=== PATIENT | female | born 1955 | race Caucasian/White ===

== ENCOUNTER 2018-11-16 02:05 | Emergency (ER) | payer OTHER ==
[2018-11-16 03:18] VITALS: BMI 35.0
--- NOTE | 2018-11-16 04:51 | PDOC ---
History of Present Illness - General Chief Complaint: Blood Pressure Problem Stated Complaint: Blood Pressure Problem Time Seen by Provider: 11/16/18 03:36 - History of Present Illness Initial Comments: 11/16/18 05:02 63 yo F with h/o HTN who p/w SOB. Patient reports waking up this morning gasping for air, coughing at approximately 2:00 AM. Endorses lightheadedness for minutes now resolved. Denies h/o similar presentation. Patient noted her BP to be 200/110 at home this AM. On HTCZ, Losartan daily. No home O2 or duoneb requirements. Patient denies BERUMEN, vision change, palpitations,wheezing, leg swelling/pain, N/V , F,C, CP, urinary complaints, hematuria, BPR, abdominal pain, diarrhea, constipation, weakness, sensory changes. PMHx: as noted above. Denies h/o ACS/OR, stent placement, CABG, PE/DVT. ROS: as noted Allergies: NKDA Past History - Past Medical History Allergies/Adverse Reactions: Allergies Allergy/AdvReac Type Severity Reaction Status Date / Time No Known Allergies Allergy Verified 11/16/18 03:17 Home Medications: Ambulatory Orders Losartan Potassium 25 mg PO DAILY 11/16/18 HTN: Yes Psychiatric Problems: Yes (anxiety) - Suicide/Smoking/Psychosocial Hx Smoking Status: No Smoking History: Never smoked Have you smoked in the past 12 months: No Number of Cigarettes Smoked Daily: 0 Information on smoking cessation initiated: No Hx Alcohol Use: No Drug/Substance Use Hx: No Substance Use Type: None *Physical Exam - Vital Signs Last Vital Signs Temp Pulse Resp BP Pulse Ox 97.7 F 79 18 173/84 H 97 11/16/18 02:05 11/16/18 02:05 11/16/18 02:05 11/16/18 02:05 11/16/18 02:05 Moderate Sedation - Procedure Monitoring Vital Signs: Procedure Monitoring Vital Signs Temperature 97.7 F 11/16/18 02:05 Pulse Rate 79 11/16/18 02:05 Respiratory Rate 18 11/16/18 02:05 Blood Pressure 173/84 H 11/16/18 02:05 O2 Sat by Pulse Oximetry (%) 97 11/16/18 02:05 ED Treatment Course - LABORATORY CBC & Chemistry Diagram: 11/16/18 05:50 11/16/18 05:50 Medical Decision Making - Medical Decision Making 11/16/18 05:07 63 yo F with h/o HTN who p/w SOB. Patient reports waking up this morning gasping for air, coughing at approximately 2:00 AM. Patient noted her BP to be 200/110 at home this AM. BP 173/84, vitals otherwise wnl, AF, A&OX3. Denies palpitations,wheezing, leg swelling/pain, N/V, F,C, CP, urinary complaints, hematuria, BPR, abdominal pain, diarrhea, constipation, weakness, sensory changes. Possible aspiration. ACS/OR r/o. Will assess for cardiac dysarrythmias, PNA, hypoglycemia, electrolyte abnml, metabolic and toxic derangements, acid-base disturbances, infection. ED Course: 11/16/18 06:07 EKG: NSR with low voltage QRS. Absent MARKIE, STD. Nml interval duration and axis. Nml R wave progression. 11/16/18 06:54 CBC, CMP: Unremarkable Trop: Neg BNP: Unremarkable 11/16/18 07:04 Pt. pending CXR. Endorsed to day team.Patient stable, and asymptomatic. *DC/Admit/Observation/Transfer Diagnosis at time of Disposition: SOB (shortness of breath) - Discharge Dispostion Condition at time of disposition: Fair - Referrals Referrals: Mike Floyd MD [Primary Care Provider] - - Patient Instructions Printed Discharge Instructions: DI for High Blood Pressure Additional Instructions: Please return to the emergency department with any new or worsening symptoms or concerns. Please follow up with your primary care physician within 72 hours. - Post Discharge Activity
--- NOTE | 2018-11-16 06:24 | PDOC ---
Attending Attestation - Resident Resident Name: Abhishek Morales - ED Attending Attestation I have performed the following: I have examined & evaluated the patient, The case was reviewed & discussed with the resident, I agree w/resident's findings & plan, Exceptions are as noted - HPI HPI: 11/16/18 06:00 63yo F hx HTN presents the ED with episode of gasping for air and SOB in the middle of the night. Pt reports she was sleeping when the symptoms woke her up, she jumped out of bed at the time and began to pace in her home States she checked her blood pressure and found it to be elevated to 208/115 prompting her to come to the ED PT reports symptoms resolved on the way here DEnies hx similar sxs Reports SOB with exertion when climbing stairs or walking 2-3 blocks over the last few months Denies CP. Sleeps on 3 thin pillows. Has been evaluated by a senior analyst programmer years ago, no hx cardiac disease No recent fevers, chills. Pt only takes losartan/HCTZ daily for HTN PMD is Dr. Floyd - Physicial Exam PE: 11/16/18 06:24 GENERAL: Awake, alert, and fully oriented, in no acute distress EYES: PERRLA, EOMI, sclera anicteric, conjunctiva clear ENT: Nares patent, oropharynx clear without exudates. Moist mucosa NECK: Normal ROM, supple, no lymphadenopathy, JVD, or masses LUNGS: Breath sounds equal, clear to auscultation bilaterally. No wheezes, and no crackles HEART: Regular rate and rhythm, normal S1 and S2, no murmurs, rubs or gallops ABDOMEN: Soft, nontender, normoactive bowel sounds. No guarding, no rebound. No masses EXTREMITIES: Normal range of motion, trace symmetric b/l edema to knees. No cords, erythema, or tenderness NEUROLOGICAL: Normal speech, cranial nerves intact, equal strength and sensation b/l SKIN: Warm, Dry, normal turgor, no rashes or lesions noted. - Medical Decision Making 11/16/18 06:26 63yo F hx HTN presents to the ED with sudden onset SOB in middle of the night. Vitals here with elevated BP Exam unremarkable DDx includes but not limited to PND in setting of undiagnosed CHF vs ACS . Pt with some ORTIZ over last few months EKG non ischemic. Plan to check labs including trop, BNP, and discuss with Dr. Floyd. 11/16/18 07:00 Labs thus far wnl, rpt trop pending Case signed out to oncoming attending for fruther mgmt/dispo Heart Score/ECG Review #1 11/16/18 06:25 Twelve-lead EKG was performed and reviewed by me. Normal sinus rhythm, rate 65. Normal axis. No ST elevations or T-wave inversions.
[2018-11-16 06:36] LABS: BASO % 0.5 % (0-2.0); EOS % 1.4 % (0-4.5); HEMATOCRIT 39.8 % (32.4-45.2); LYMPH % 17.7 % (8-40); MCH 30.9 pg (25.7-33.7); MCHC 35.2 g/dl (32.0-36.0); MEAN CELL VOLUME 87.8 fl (80-96); MEAN PLT VOLUME 8.1 fl (7.5-11.1); MONO % 5.4 % (3.8-10.2); PLATELET COUNT 262 K/MM3 (134-434); RBC 4.53 M/mm3 (3.60-5.2); RDW 13.5 % (11.6-15.6); WHITE BLOOD COUNT 12.1 K/mm3 (4.0-10.0)
[2018-11-16 06:51] LABS: ALBUMIN 3.8 g/dl (3.4-5.0); ALK PHOS 80 U/L (45-117); ANION GAP 6 MMOL/L (8-16); BILIRUBIN,TOTAL 0.3 mg/dL (0.2-1); BLOOD UREA NITROGEN 18 mg/dL (7-18); CHLORIDE 101 mmol/L (98-107); CO2 28 mmol/L (21-32); GLUCOSE,RANDOM 130 mg/dL (74-106); N-TERMINAL BNP 85.1 pg/ml (5-125); SGOT/AST 17 U/L (15-37); SGPT/ALT 26 U/L (13-61); SODIUM 135 mmol/L (136-145); TOT PROT 7.5 g/dl (6.4-8.2)
[2018-11-16 07:04] VITALS: BP 114/42; PULSE 65; TEMP 97.9
--- NOTE | 2018-11-16 09:41 | PDOC ---
*Physical Exam - Vital Signs Last Vital Signs Temp Pulse Resp BP Pulse Ox 97.9 F 65 18 114/42 L 96 11/16/18 07:03 11/16/18 07:03 11/16/18 07:03 11/16/18 07:03 11/16/18 07:03 - Physical Exam Comments: Patient's care endorsed to me by Dr. Morales at the end of his shift. 63YOF with h /o HTN who had an event this morning at 2 am which awakened her from sleep, was coughing, thought she aspirated, and became SOB for a time afterward. No symptoms now, was a bit hypertensive on arrival while stressed, but comfortable and normotensive now. EKG normal, first trop negative, pending a second and CXR now. ED Treatment Course - LABORATORY CBC & Chemistry Diagram: 11/16/18 05:50 11/16/18 05:50 - ADDITIONAL ORDERS Additional order review: Laboratory Results 11/16/18 11/16/18 11/16/18 07:30 05:59 05:50 Sodium 135 L Potassium 4.0 Chloride 101 Carbon Dioxide 28 Anion Gap 6 L BUN 18 Creatinine 1.0 Creat Clearance w eGFR 55.82 Random Glucose 130 H Calcium 9.0 Total Bilirubin 0.3 AST 17 ALT 26 Alkaline Phosphatase 80 Creatine Kinase 194 H Creatine Kinase Index 1.1 CK-MB (CK-2) 2.2 Troponin I < 0.02 < 0.02 B-Natriuretic Peptide 85.1 Total Protein 7.5 Albumin 3.8 11/16/18 05:50 RBC 4.53 MCV 87.8 MCHC 35.2 RDW 13.5 MPV 8.1 Neutrophils % 75.0 Lymphocytes % 17.7 Monocytes % 5.4 Eosinophils % 1.4 Basophils % 0.5 Medical Decision Making - Medical Decision Making Laboratory Tests 11/16/18 11/16/18 11/16/18 05:50 05:50 05:59 WBC 12.1 H RBC 4.53 Hgb 14.0 Hct 39.8 MCV 87.8 MCH 30.9 MCHC 35.2 RDW 13.5 Plt Count 262 MPV 8.1 Absolute Neuts (auto) 9.1 H Neutrophils % 75.0 Lymphocytes % 17.7 Monocytes % 5.4 Eosinophils % 1.4 Basophils % 0.5 Nucleated RBC % 0 Sodium 135 L Potassium 4.0 Chloride 101 Carbon Dioxide 28 Anion Gap 6 L BUN 18 Creatinine 1.0 Creat Clearance w eGFR 55.82 Random Glucose 130 H Calcium 9.0 Total Bilirubin 0.3 AST 17 ALT 26 Alkaline Phosphatase 80 Creatine Kinase 194 H Creatine Kinase Index 1.1 CK-MB (CK-2) 2.2 Troponin I < 0.02 B-Natriuretic Peptide 85.1 Total Protein 7.5 Albumin 3.8 11/16/18 07:30 WBC RBC Hgb Hct MCV MCH MCHC RDW Plt Count MPV Absolute Neuts (auto) Neutrophils % Lymphocytes % Monocytes % Eosinophils % Basophils % Nucleated RBC % Sodium Potassium Chloride Carbon Dioxide Anion Gap BUN Creatinine Creat Clearance w eGFR Random Glucose Calcium Total Bilirubin AST ALT Alkaline Phosphatase Creatine Kinase Creatine Kinase Index CK-MB (CK-2) Troponin I < 0.02 B-Natriuretic Peptide Total Protein Albumin 11/16/18 09:[address] Floyd who will f/u with her in a clinic appointment. CXR shows nothing acute. Repeat cardiac enzymes are negative. No new abnormal rhythms have been observed on the administrative coordinator. On last reassessment VS are stable, Pts symptoms are resolved, and exam is benign. The Pt is appropriate for discharge with close outpatient follow up. They are comfortable with this plan and will follow up with their primary care provider in 1-3 days. Specific return precautions are discussed and they will come back to the ER if necessary. *DC/Admit/Observation/Transfer Diagnosis at time of Disposition: SOB (shortness of breath) - Discharge Dispostion Disposition: HOME Condition at time of disposition: Stable Decision to Admit order: No - Referrals Referrals: Mike Floyd MD [Primary Care Provider] - - Patient Instructions Printed Discharge Instructions: DI for High Blood Pressure Additional Instructions: You were seen in the ER for an event that happened overnight including coughing and shortness of breath which resolved. We did lab work, an electrocardiogram, and a chest x-ray, and we did not find any concerning abnormalities. After our assessment, we do not believe you are having a medical emergency at this time, and we believe you are safe to go home. Please follow up with your primary care provider in 1-3 days. Call their clinic as soon as possible, tell them you were seen in the ER, and tell them you need an appointment. If you have any new or worsening symptoms, especially chest pain, jaw pain, shoulder/arm pain, shortness of breath, sweats, nausea, loss of consciousness, palpitations, or other symptoms, please come back to the ER at any time (24 hours a day). If you are having severe or life threatening symptoms, or symptoms that make it unsafe to drive or have someone drive you, please call 911. - Post Discharge Activity
--- NOTE | 2018-11-16 10:08 | EKG ---
Test Reason : Blood Pressure : / mmHG Vent. Rate : 065 BPM Atrial Rate : 065 BPM P-R Int : 160 ms QRS Dur : 084 ms QT Int : 424 ms P-R-T Axes : 041 -21 019 degrees QTc Int : 440 ms NORMAL SINUS RHYTHM LOW VOLTAGE QRS BORDERLINE ECG WHEN COMPARED WITH ECG OF 12-JUL-2009 13:22, NO SIGNIFICANT CHANGE WAS FOUND Confirmed by MICHELLE PRICE MD ([id number]) on 11/16/2018 10:08:03 AM Referred By: Confirmed By:MICHELLE PRICE MD
== END 2018-11-16 10:05 | disposition home or self-care (01) ==
LOC: JER 02:05
DX: R06.09 Other forms of dyspnea (principal); I10 Essential (primary) hypertension; F41.9 Anxiety disorder, unspecified
CPT/HCPCS: 36415; 71046-TC-FY; 80053; 82550; 82553; 83880; 84484; 85025; 93005; 93010; 99282-25